=== PATIENT | male | born 1975 | race African-American/Black ===

== ENCOUNTER 2021-05-15 11:09 | Emergency (ER) | payer SELFPAY ==
[~2021-05-15] VITALS: Ht 177.8 cm; Wt 77.2 kg
[2021-05-15] MEDS ORDERED: DEXTROSE 50% 25 GM / 50ML DISP.SYRIN. IV ONE (11:14)
[2021-05-15] MEDS ORDERED: IV NORMAL SALINE 1000ML BAG 1,000 ML IV ONE (11:30)
[2021-05-15 11:45] LABS: BASO # 0.1 x10^3/uL (0.0-0.2); BASO % 1 % (0-3); EOS # 0.3 x10^3/uL (0.0-0.7); EOS % 4 % (0-3); HEMATOCRIT 47.4 % (39.0-53.0); HEMOGLOBIN 15.8 g/dL (13.0-17.5); LYMPH # 1.7 x10^3/uL (1.0-4.8); LYMPH % 20 % (24-48); MEAN CORPUSCULAR HEMOGLOBIN 31 pg (25-35); MEAN CORPUSCULAR HGB CONC 33 g/dL (31-37); MEAN CORPUSCULAR VOLUME 94 fL (79-100); MONO # 1.3 x10^3/uL (0.0-1.1); MONO % 15 % (0-9); NEUT # 5.5 x10^3/uL (1.8-7.7); NEUT % 62 % (31-73); PLATELET COUNT 290 x10^3/uL (140-400); RED BLOOD COUNT 5.06 x10^6/uL (4.30-5.70); RED CELL DISTRIBUTION WIDTH 13.9 % (11.5-14.5); WHITE BLOOD COUNT 8.8 x10^3/uL (4.0-11.0)
--- NOTE | 2021-05-15 11:53 | PHYS DOC ---
Past Medical History Past Surgical History: No Surgical History Adult General Chief Complaint Chief Complaint: HYPOGLYCEMIA HPI HPI The patient is a 45-year-old male with a history of insulin-dependent diabetes and without other medical problems for which she takes daily medications. He takes NPH insulin twice a day and regular insulin multiple times a day based on what sounds like a rough carb counting approach, but tells me that he does not routinely check his blood sugars. Contrary to the triage note, patient does not have a seizure disorder history per discussion with him. Mr. Degroot presents for evaluation of poor responsiveness at home on the couch prior to arrival. Son heard him snoring and went to bedside and could not arouse him. EMS were contacted and upon their arrival patient's blood sugar was noted to be in the 20s. He was administered D10 boluses x2 with some improvement in blood sugar. On arrival to the emergency department patient had aroused and was able to answer questions, follow commands and move all extremities, but remained somewhat lethargic. Blood sugar here initially was in the 40s. 2 A D50 immediately given with considerable improvement in patient's mental status. Following that intervention, level of consciousness normalized. Patient states he does not remember what happened immediately prior to arrival. He states he does not hurt anywhere. He denies feeling poorly when he woke up this morning and specifically denies fevers, nausea or vomiting, headache, focal or lateralizing weakness, numbness or tingling, neck stiffness/pain/meningismus, vision changes, upper respiratory congestion/rhinorrhea, cough, sore throat, shortness of breath or chest pain of any kind, abdominal pain of any kind, flank pain, midline back pain, dysuria, hematuria, polyuria or oliguria, changes in bowel habits, weakness, numbness or tingling to arms or legs. Vital signs are appropriate here and the patient is in no acute distress. Review of Systems Review of Systems A 12 point review of systems was completed and was negative except where noted in HPI above. Current Medications Current Medications Current Medications Medications (Trade) Dose Ordered Sig/Mirtha Start Time Stop Time Status Last Admin Dose Admin Dextrose (Dextrose 50%-Water Syringe) 25 gm STK-MED ONCE 05/15/21 11:14 05/15/21 11:15 DC Sodium Chloride 1,000 ml @ 1,000 mls/hr 1X ONCE 05/15/21 11:30 05/15/21 12:29 DC 05/15/21 11:45 1,000 MLS/HR Allergies Allergies Allergies Coded Allergies Type Severity Reaction Last Updated Verified No Known Drug Allergies 05/15/21 No Physical Exam Physical Exam 45-year-old male appearing nontoxic and in no acute distress. Head is normocephalic and atraumatic. Neck is supple and nontender. Oropharynx is moist. Lungs are clear to auscultation at all stations. There is a normal S1 and S2 without rubs or gallops and capillary refill is appropriate, less than 2 seconds globally. Abdomen is soft, nontender nondistended. Skin is warm and dry without cyanosis, clubbing or edema. Psychiatrically, the patient demonstrates appropriate mood and affect and is alert. Evaluation of the extremities reveals BUEs and BLEs neurovascularly intact distally with strength 5-5, sensation intact light touch in all nerve distributions, radial, DP and PT pulses 2+ bilaterally, capillary refill less than 2 seconds, hands and feet warm and well-perfused. No dependent peripheral edema distally. No calf tenderness or swelling bilaterally. Homans test negative bilaterally. There is chronic ulceration, superficial, to the plantar aspect of the left forefoot, fibular side. Patient states this does not hurt and has been there for a long time. Neurologically, cranial nerves II through XII are intact and the neuro no lateralizing deficit seen. Speech is normal. Language is normal. Coordination is normal. There is no dysmetria with iyeeqd-sj-bitr or vaid-ws-apef bilaterally. Strength is 5-5 at all joints of bilateral upper and lower extremities. Sensation is intact light touch in bilateral upper and lower extremities. Patient ambulates with a narrow, steady, non-ataxic gait here in the emergency department and is alert and oriented x4. Current Patient Data Vital Signs Vital Signs Date Time Temp Pulse Resp B/P (MAP) Pulse Ox O2 Delivery O2 Flow Rate FiO2 05/15/21 11:10 96.6 93 16 179/100 (126) 95 Room Air 96.6 Lab Values Laboratory Tests Test 05/15/21 11:11 05/15/21 11:25 05/15/21 12:15 Glucose (Fingerstick) 49 mg/dL (70-99) L White Blood Count 8.8 x10^3/uL (4.0-11.0) Red Blood Count 5.06 x10^6/uL (4.30-5.70) Hemoglobin 15.8 g/dL (13.0-17.5) Hematocrit 47.4 % (39.0-53.0) Mean Corpuscular Volume 94 fL (79-100) Mean Corpuscular Hemoglobin 31 pg (25-35) Mean Corpuscular Hemoglobin Concent 33 g/dL (31-37) Red Cell Distribution Width 13.9 % (11.5-14.5) Platelet Count 290 x10^3/uL (140-400) Neutrophils (%) (Auto) 62 % (31-73) Lymphocytes (%) (Auto) 20 % (24-48) L Monocytes (%) (Auto) 15 % (0-9) H Eosinophils (%) (Auto) 4 % (0-3) H Basophils (%) (Auto) 1 % (0-3) Neutrophils # (Auto) 5.5 x10^3/uL (1.8-7.7) Lymphocytes # (Auto) 1.7 x10^3/uL (1.0-4.8) Monocytes # (Auto) 1.3 x10^3/uL (0.0-1.1) H Eosinophils # (Auto) 0.3 x10^3/uL (0.0-0.7) Basophils # (Auto) 0.1 x10^3/uL (0.0-0.2) Sodium Level 133 mmol/L (136-145) L Potassium Level 3.9 mmol/L (3.5-5.1) Chloride Level 97 mmol/L (98-107) L Carbon Dioxide Level 25 mmol/L (21-32) Anion Gap 11 (6-14) Blood Urea Nitrogen 13 mg/dL (8-26) Creatinine 0.8 mg/dL (0.7-1.3) Estimated GFR (Cockcroft-Gault) 125.4 BUN/Creatinine Ratio 16 (6-20) Glucose Level 163 mg/dL (70-99) H Calcium Level 8.9 mg/dL (8.5-10.1) Total Bilirubin 0.2 mg/dL (0.2-1.0) Aspartate Amino Transferase (AST) 30 U/L (15-37) Alanine Aminotransferase (ALT) 31 U/L (16-63) Alkaline Phosphatase 86 U/L (46-116) Total Protein 7.9 g/dL (6.4-8.2) Albumin 3.7 g/dL (3.4-5.0) Albumin/Globulin Ratio 0.9 (1.0-1.7) L Laboratory Tests 05/15/21 11:25 Laboratory Tests 05/15/21 12:15 EKG EKG Sinus rhythm, rate 98, no acute ST elevation or depression, CA 154, QRS 92, QTc 469, EP interpretation. Nonischemic tracing, intervals appropriate. [] Radiology/Procedures Radiology/Procedures [] Course & Med Decision Making Course & Med Decision Making History and examination are compatible with symptomatic hypoglycemia in an insulin-dependent diabetic. Symptoms largely resolved after intravenous dextrose. Will check basic labs and feed the patient a meal tray and will observe him for time and will then reevaluate. If he feels well after a meal and has no further symptoms and labs are reassuring, likely home to follow-up closely with primary care. Patient understands and agrees. 1250: Work-up unremarkable and reassuring. Patient has been observed for an extended interval here in the emergency department after eating a meal and feels completely back to normal. He now remembers that he did not eat anything after taking his insulin prior to the episode that brought him in. Will discharge home to follow-up closely with primary care. Patient understands that if he feels worse instead of better, has recurrent symptoms or any other new symptoms of concern that he will need to return to the emergency department immediately for reevaluation. All questions are answered. Dragon Disclaimer Dragon Disclaimer This electronic medical record was generated, in whole or in part, using a voice recognition dictation system. Departure Departure Impression: Primary Impression: Hypoglycemia associated with type 2 diabetes mellitus Disposition: 01 HOME / SELF CARE / HOMELESS Condition: IMPROVED Patient Instructions: Hypoglycemia (Low Blood Sugar) Additional Instructions: Follow-up very closely with your primary care doctor in the office in the next 2 to 4 days for a reevaluation of your symptoms and to discussion of next best steps in care. Remember to eat something as soon as you take your short acting insulin to avoid problems with low blood sugar in the future. Drink plenty of fluids and get plenty of rest. Return to the emergency department with recurrent or worsening symptoms of any kind or with any other new symptoms of concern. SARAH DEL ROSARIO MD May 15, 2021 11:53
[2021-05-15 12:36] LABS: CALCIUM 8.9 mg/dL (8.5-10.1); CREATININE 0.8 mg/dL (0.7-1.3); GFR 125.4; POTASSIUM 3.9 mmol/L (3.5-5.1)
[2021-05-15 12:42] LABS: ALBUMIN 3.7 g/dL (3.4-5.0); ALBUMIN/GLOBULIN RATIO 0.9 (1.0-1.7); TOTAL BILIRUBIN 0.2 mg/dL (0.2-1.0); TOTAL PROTEIN 7.9 g/dL (6.4-8.2)
[2021-05-15 12:53] VITALS: BP 145/66
--- NOTE | 2021-05-16 03:38 | EKG ---
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
--- NOTE | 2021-05-16 03:39 | EKG ---
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
== END 2021-05-15 13:00 | disposition home or self-care (01) ==
LOC: ER 11:09
DX: E11.649 Type 2 diabetes mellitus with hypoglycemia without coma (principal)
CPT/HCPCS: 36415; 80053; 82962; 85025; 93005; 96360; 99285; J7030

== ENCOUNTER 2021-05-30 09:21 | Emergency (ER) | payer SELFPAY ==
[2021-05-30 09:50] LABS: CALCIUM 8.7 mg/dL (8.5-10.1); CREATININE 0.7 mg/dL (0.7-1.3); GFR 146.3; POTASSIUM 5.1 mmol/L (3.5-5.1)
--- NOTE | 2021-05-30 10:32 | PHYS DOC ---
Past Medical History Past Medical History: Diabetes-Type I Past Surgical History: No Surgical History Smoking Status: Current Some Day Smoker Alcohol Use: Occasionally General Adult EDM: Chief Complaint: HYPOGLYCEMIA HPI: HPI: Patient is a 45 year old male with a history of type 1 diabetes who presents with EMS for altered mental status. Patient lives alone and works late at night. Last night took his insulin around midnight. States that he took 10 units of regular insulin, and 14 units of NPH. States that he did eat, but does not think that he ate enough food before going to sleep last night. This morning was found altered by family, and EMS was called. Blood glucose was 51. EMS states that bystanders were concerned that there may have been some shaking/seizure-like activity. Vital signs were stable. IV access was not able to be obtained prehospital, so IM glucagon was given. After the glucagon, EMS states that his mental status was quickly improving. Patient states that he has been in his usual state of health. Denies any acute complaints. Specifically denies any fever, chills, recent congestion, sore throat, runny nose, cough, shortness of breath, chest pain, abdominal pain, nausea/vomiting, or chest pain Review of Systems: Review of Systems: Constitutional: Denies fever or chills. [] Eyes: Denies change in visual acuity. [] HENT: Denies nasal congestion or sore throat. [] Respiratory: Denies cough or shortness of breath. [] Cardiovascular: Denies chest pain or edema. [] GI: Denies abdominal pain, nausea, vomiting, bloody stools or diarrhea. [] : Denies dysuria. [] Musculoskeletal: Denies back pain or joint pain. [] Integument: Denies rash. [] Neurologic: Denies headache, focal weakness or sensory changes. [] Psychiatric: Denies depression or anxiety. [] Heart Score: C/O Chest Pain: No Allergies: Allergies: Allergies Coded Allergies Type Severity Reaction Last Updated Verified No Known Drug Allergies 05/15/21 No Physical Exam: PE: Constitutional: Somnolent, mildly diaphoretic. Neck: Normal range of motion, no tenderness, supple, no stridor. [] Cardiovascular:Heart rate regular rhythm, no murmur [] Lungs & Thorax: Bilateral breath sounds clear to auscultation [] Abdomen: Bowel sounds normal, soft, no tenderness, no masses, no pulsatile mass es. [] Skin: Warm, dry, no erythema, no rash. [] Back: No tenderness, no CVA tenderness. [] Extremities: No tenderness, no cyanosis, no clubbing, ROM intact, no edema. [] Neurologic: Somnolent, eyes closed but opens to voice, oriented to person, place, time, situation. Moving all extremities. Following commands. Normal coordination and strength. Normal sensation grossly. Current Patient Data: Labs: Laboratory Tests Test 05/30/21 09:20 05/30/21 09:25 05/30/21 10:19 Sodium Level 139 mmol/L (136-145) Potassium Level 5.1 mmol/L (3.5-5.1) Chloride Level 104 mmol/L (98-107) Carbon Dioxide Level 24 mmol/L (21-32) Anion Gap 11 (6-14) Blood Urea Nitrogen 10 mg/dL (8-26) Creatinine 0.7 mg/dL (0.7-1.3) Estimated GFR (Cockcroft-Gault) 146.3 Glucose Level 72 mg/dL (70-99) Calcium Level 8.7 mg/dL (8.5-10.1) Magnesium Level 2.0 mg/dL (1.8-2.4) Glucose (Fingerstick) 76 mg/dL (70-99) 234 mg/dL (70-99) H Laboratory Tests 05/30/21 09:20 EKG: EKG: [] Radiology/Procedures: Radiology/Procedures: [] Course & Med Decision Making: Course & Med Decision Making Pertinent Labs and Imaging studies reviewed. (See chart for details) Patient 45-year-old type I diabetic who presents with altered mental status likely due to hypoglycemia. Hypoglycemia appears to be secondary to insulin with inadequate food intake. Insulin dose was 12 AM. IM glucagon given prehospital increased glucose from 51-76. Patient was then given a sandwich and cola. Patient's mental status has been slowly improving and is now at baseline. Basic metabolic panel and magnesium are normal. After food glucose is 234. Patient is requesting discharge as he has to be at work at noon. States that he will be around others, and will have food available for him if he were to have recurrent symptoms. I asked him to discuss his insulin regimen with his primary care doctor, to determine if any adjustments need to be made. Salima Disclaimer: Dragzia Disclaimer: This electronic medical record was generated, in whole or in part, using a voice recognition dictation system. Departure Departure Impression: Primary Impression: Hypoglycemia Disposition: HOME / SELF CARE / HOMELESS Condition: STABLE Referrals: NO PCP (PCP) Additional Instructions: Please call your PCP to discuss your insulin regimen and determine if any changes need to be made. Please continue to check your blood sugar today, and be sure to eat adequate food after you give yourself insulin. Please be sure others are around throughout the day to help in case you have recurrent symptoms. MARY DELCID MD May 30, 2021 10:32
[2021-05-30 11:00] VITALS: BP 129/69
== END 2021-05-30 11:00 | disposition home or self-care (01) ==
LOC: ER 09:21
DX: E10.649 Type 1 diabetes mellitus with hypoglycemia without coma (principal); R41.82 Altered mental status, unspecified; F17.200 Nicotine dependence, unspecified, uncomplicated
CPT/HCPCS: 36415; 80048; 82962; 83735; 99283

== ENCOUNTER 2021-09-17 08:28 | Inpatient (IN) | payer SELFPAY ==
[~2021-09-17] VITALS: Ht 180.3 cm; Wt 78.5 kg
[2021-09-17] MEDS ORDERED: DEXTROSE 50% 25 GM / 50ML DISP.SYRIN. IV ONE (08:45)
--- NOTE | 2021-09-17 08:48 | PHYS DOC ---
Past Medical History Past Medical History: Diabetes-Type I Past Surgical History: No Surgical History Smoking Status: Current Some Day Smoker Alcohol Use: Occasionally General Adult EDM: Chief Complaint: HYPOGLYCEMIA HPI: HPI: Patient is a 46 year old male with a history of insulin-dependent diabetes presents with altered mental status and hypoglycemia. Patient was found by his son with a blood sugar of 48 last seen normal 6:30 PM yesterday. Patient has not seen goal umpire or primary care physician for his diabetes. Patient's mother states that he just buys insulin from the pharmacy and attempt to manage it himself. Patient has had history of hypoglycemia in the past and has been comatose. Review of Systems: Review of Systems: Unable to obtain history due to patient's altered mental status Heart Score: C/O Chest Pain: No Risk Factors: Risk Factors: DM, Current or recent (<one month) smoker, HTN, HLP, family history of CAD, obesity. Risk Scores: Score 0 - 3: 2.5% MACE over next 6 weeks - Discharge Home Score 4 - 6: 20.3% MACE over next 6 weeks - Admit for Clinical Observation Score 7 - 10: 72.7% MACE over next 6 weeks - Early Invasive Strategies Current Medications: Current Medications Medications (Trade) Dose Ordered Sig/Mirtha Start Time Stop Time Status Last Admin Dose Admin Dextrose (Dextrose 50%-Water Syringe) 12.5 gm 1X ONCE 09/17/21 08:45 09/17/21 08:46 DC Allergies: Allergies: Allergies Coded Allergies Type Severity Reaction Last Updated Verified No Known Drug Allergies 05/15/21 No Physical Exam: PE: Constitutional: Patient is confused only able to use profanity. HENT: Normocephalic, atraumatic, bilateral external ears normal, oropharynx moist, no oral exudates, nose normal. [] Eyes: PERRLA, EOMI, conjunctiva normal, no discharge. [] Neck: Normal range of motion, no tenderness, supple, no stridor. [] Cardiovascular:Heart rate regular rhythm, no murmur [] Lungs & Thorax: Bilateral breath sounds clear to auscultation [] Abdomen: Bowel sounds normal, soft, no tenderness, no masses, no pulsatile masses. [] Skin: Patient has an old healing wound on the bottom of his right foot. Patient has Charcot deformity. Warm, dry, no erythema, no rash. [] Back: No tenderness, no CVA tenderness. [] Extremities: No tenderness, no cyanosis, no clubbing, ROM intact, no edema. [] Neurologic: Patient is not alert oriented to person place or time. Patient able to move all 4 extremities. Psychologic: Unable to assess Current Patient Data: Labs: Laboratory Tests Test 09/17/21 08:32 Glucose (Fingerstick) 113 mg/dL (70-99) H EKG: EKG: [] Patient has sinus tachycardia with a heart rate of 101 and a QTC of 468. Patient has anterior Q waves Radiology/Procedures: Radiology/Procedures: []EXAMINATION: CT HEAD/BRAIN WO CLINICAL HISTORY: AMS. TECHNIQUE: Serial axial images without IV contrast were obtained from the vertex to the foramen magnum. CT Dose Reduction Employed: One or more of the following individualized dose reduction techniques were utilized for this examination: 1. Automated exposure control 2. Adjustment of the mA and/or kV according to patient size 3. Use of iterative reconstruction technique. COMPARISON: None FINDINGS: Acute Change: No evidence of an acute infarct or other acute parenchymal process. Hemorrhage: No evidence of acute intracranial hemorrhage. Mass Lesion/Mass Effect: No evidence of intracranial mass or extraaxial fluid collection. No significant mass effect. Chronic Change: Atherosclerotic calcification of the intracranial portion of the bilateral internal carotid arteries. Parenchyma: Parenchyma within normal limits for age. Ventricles: Ventricles within normal limits for age. Paranasal Sinuses and Skull Base: Visualized paranasal sinuses clear. Visualized skull base and soft tissues unremarkable. IMPRESSION: No evidence of acute intracranial abnormality. Course & Med Decision Making: Course & Med Decision Making Patient is not back to his baseline. Patient will be brought in for altered mental status. Dragon Disclaimer: Dragon Disclaimer: This electronic medical record was generated, in whole or in part, using a voice recognition dictation system. Departure Departure Impression: Primary Impression: Hypoglycemia associated with type 2 diabetes mellitus Additional Impression: Altered mental status Condition: STABLE Referrals: NO PCP (PCP) MARCK GARCIA DO Sep 17, 2021 08:48
[2021-09-17 08:52] LABS: BASO % 0 % (0-3); EOS % 0 % (0-3); HEMATOCRIT 45.4 % (39.0-53.0); HEMOGLOBIN 15.4 g/dL (13.0-17.5); LYMPH % 11 % (24-48); MEAN CORPUSCULAR HEMOGLOBIN 32 pg (25-35); MEAN CORPUSCULAR HGB CONC 34 g/dL (31-37); MEAN CORPUSCULAR VOLUME 93 fL (79-100); MONO # 0.5 x10^3/uL (0.0-1.1); MONO % 6 % (0-9); NEUT # 7.8 x10^3/uL (1.8-7.7); NEUT % 83 % (31-73); PLATELET COUNT 315 x10^3/uL (140-400); RED BLOOD COUNT 4.87 x10^6/uL (4.30-5.70); RED CELL DISTRIBUTION WIDTH 14.2 % (11.5-14.5); WHITE BLOOD COUNT 9.5 x10^3/uL (4.0-11.0)
[2021-09-17 09:03] LABS: CALCIUM 9.2 mg/dL (8.5-10.1); CREATININE 0.8 mg/dL (0.7-1.3); GFR 124.8; POTASSIUM 4.3 mmol/L (3.5-5.1)
[2021-09-17 09:09] LABS: ALBUMIN 3.9 g/dL (3.4-5.0); ALBUMIN/GLOBULIN RATIO 0.8 (1.0-1.7); TOTAL BILIRUBIN 0.4 mg/dL (0.2-1.0); TOTAL PROTEIN 8.7 g/dL (6.4-8.2)
[2021-09-17] MEDS ORDERED: IV DEXTROSE 5%-LACT RINGERS 1,000 ML IV SCH (09:30)
--- NOTE | 2021-09-17 10:10 | RAD ---
EXAMINATION: CT HEAD/BRAIN WO CLINICAL HISTORY: AMS. TECHNIQUE: Serial axial images without IV contrast were obtained from the vertex to the foramen magnu m. CT Dose Reduction Employed: One or more of the following individualized dose reduction techniques wer e utilized for this examination: 1. Automated exposure control 2. Adjustment of the mA and/or kV ac cording to patient size 3. Use of iterative reconstruction technique. COMPARISON: None FINDINGS: Acute Change: No evidence of an acute infarct or other acute parenchymal process. Hemorrhage: No evidence of acute intracranial hemorrhage. Mass Lesion/Mass Effect: No evidence of intracranial mass or extraaxial fluid collection. No signific ant mass effect. Chronic Change: Atherosclerotic calcification of the intracranial portion of the bilateral internal c arotid arteries. Parenchyma: Parenchyma within normal limits for age. Ventricles: Ventricles within normal limits for age. Paranasal Sinuses and Skull Base: Visualized paranasal sinuses clear. Visualized skull base and soft tissues unremarkable. IMPRESSION: No evidence of acute intracranial abnormality. Electronically signed by: Vitor Bond DO (09/17/2021 10:08 AM) [id number]
--- NOTE | 2021-09-17 14:37 | HP ---
DATE OF SERVICE: 09/17/2021 ADMIT DATE: 09/17/2021 CHIEF COMPLAINT: Mental status change and hypoglycemia. HISTORY OF PRESENT ILLNESS: The patient is a pleasant middle-aged male who drinks too much alcohol and he is noncompliant with his diabetic meds. He does not see his doctor. He does not go to the support worker. His mom states he drinks lots of beer. His son found him today on the floor unresponsive. His sugar was 48 when the EMS arrived. The patient was brought to the ER for evaluation. We have now given him some glucose. His sugars are up to 118, but is still having mental status change. We are going to admit the patient. PAST MEDICAL HISTORY: Noncompliance, diabetes, tobacco abuse, alcohol abuse per his mom's (she states he drinks lots of beers every day). ALLERGIES: None. FAMILY HISTORY: Hypertension. SOCIAL HISTORY: He drinks and smokes. No drugs that we are aware of. He does not work right now. MEDICATIONS: Reviewed, please refer to the MRAD. REVIEW OF SYSTEMS: Unable to obtain. He is obtunded. PHYSICAL EXAMINATION: VITALS: Within normal limits and are stable. GENERAL: He is obtunded. HEENT: normocephalic atraumatic, external auditory canals are patent. EYES: Extraocular muscles are intact, pupils are equally round and reactive to light and accommodation. MUSCULOSKELETAL: Well developed, well nourished, good range of motion. ENDOCRINE: No thyromegaly was palpated. LYMPHATICS: No cervical chain or axillary nodes were noted. HEMATOPOIETIC: No bruising. NECK: Supple, no JVD, no thyromegaly was noted. LUNGS: Clear to auscultation in all lung monahan without rhonchi or wheezing. HEART: RRR, S1, S2 present. Peripheral pulses intact, no obvious murmurs were noted. ABDOMEN: Soft, nontender. Positive bowel sounds no organomegaly, normal bowel sounds. EXTREMITIES: Without any cyanosis, clubbing, or edema. Pedal pulses intact, Homans sign is negative. NEUROLOGIC: He is obtunded. PSYCHIATRIC: He is obtunded. SKIN: No ulcerations or rashes, good skin turgor, no jaundice. VASCULAR: Good capillary refill, neurovascular bundle appears to be intact. ASSESSMENT AND PLAN: Symptomatic hypoglycemia. The patient has been admitted. We will monitor his glucose carefully and give him p.r.n. amps of D50. Continue his other home medicines. We will consider alcohol withdrawal protocol. If we see signs of alcohol withdrawal, consult Neurology. Deep venous thrombosis prophylaxis. Full code. [facility] [place] DR: AKASH/jennifer TID: [id number]
--- NOTE | 2021-09-17 15:20 | NUR ---
ADMISSION ASSESSMENT COMPLETED, THIS RESISTANCE WELDER UNABLE TO COMPLETE SUJECTIVE PART OF ADMISSION DUE TO PATIENT DROWSY AND CONFUSED AT TIMES.
--- NOTE | 2021-09-17 15:20 | NUR ---
PATIENT ASSESSED FOR ELOPEMENT RISKPER ELOPEMENT POLICY AND PROCEDURE, PATIENT NOT DEEMED A RISK.
[2021-09-17] MEDS ORDERED: INSULIN LISPRO 300 UNITS/3 ML VIAL. SQ SCH (17:00)
[2021-09-17] MEDS ORDERED: IV DEXTROSE 5% 250 ML BAG. IV PRN (17:00)
[2021-09-17] MEDS ORDERED: DEXTROSE 50% 25 GM / 50ML DISP.SYRIN. IV PRN (17:00)
[2021-09-17] MEDS: INSULIN LISPRO 300 UNITS/3 ML VIAL. SQ SCH (17:50)
[2021-09-17 18:12] LABS: BARBITURATES NEG (NEG); BENZODIAZEPINES NEG (NEG); CANNABINOIDS NEG (NEG); COCAINE NEG (NEG); METHADONE NEG (NEG); OPIATES NEG (NEG); PHENCYCLIDINE NEG (NEG)
[2021-09-17 18:13] LABS: AMPHETAMINE/METHAMPHETAMINE NEG (NEG)
[2021-09-17 18:38] LABS: HYALINE CASTS, URINE FEW /HPF
[2021-09-17 18:39] LABS: BACTERIA,URINE 0 /HPF (0-FEW); RBC,URINE OCC /HPF (0-2); WBC,URINE 0 /HPF (0-4)
[2021-09-17 19:00] VITALS: BP 121/51
--- NOTE | 2021-09-17 20:38 | RAD ---
XR CHEST 1V History: Reason: tachycardia / Spl. Instructions: / History: Comparison: None. Findings: No consolidation or pleural effusion. Normal heart size. No pneumothorax. Impression: 1. No acute cardiopulmonary process. Electronically signed by: David Starks DO (09/17/2021 8:36 PM) [facility] [place]
[2021-09-17] MEDS ORDERED: INSULIN GLARGINE SYRINGE. SQ SCH (21:00)
[2021-09-17 23:00] VITALS: BP 123/76
[2021-09-17] MEDS ORDERED: traMADol 50 MG TABLET PO PRN (23:00)
--- NOTE | 2021-09-18 04:27 | EKG ---
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
--- NOTE | 2021-09-18 06:45 | NUR ---
Pt. assessed for elopement risk per elopement policy and procedure, Pt. not deemed a risk.
[2021-09-18 07:00] VITALS: BP 125/74
[2021-09-18] MEDS: INSULIN LISPRO 300 UNITS/3 ML VIAL. SQ SCH ×4 (07:30→12:56)
[2021-09-18 11:00] VITALS: BP 130/55
[2021-09-18 11:40] LABS: HEMATOCRIT 40.3 % (39.0-53.0); HEMOGLOBIN 13.8 g/dL (13.0-17.5); RED BLOOD COUNT 4.36 x10^6/uL (4.30-5.70); RED CELL DISTRIBUTION WIDTH 14.1 % (11.5-14.5); WHITE BLOOD COUNT 10.6 x10^3/uL (4.0-11.0)
[2021-09-18 11:44] LABS: CALCIUM 8.8 mg/dL (8.5-10.1); CREATININE 0.9 mg/dL (0.7-1.3)
--- NOTE | 2021-09-18 12:33 | PDOC ---
[employer] PROGRESS NOTE Date of Service DOS: DATE: 09/18/21 TIME: 12:31 Chief Complaint Chief Complaint Symptomatic hypoglycemia Noncompliance, (he refuses to go the doctor) diabetes, tobacco abuse, alcohol abuse per his mom's (she states he drinks lots of beers every day). History of Present Illness History of Present Illness 09/18/2021 Patient seen exam Discussed with RN Chart reviewed Is much more alert wants to go home We will go ahead and discharge I told him to please stop drinking so much beer Vitals/I&O Vitals/I&O: Vital Signs Date Time Temp Pulse Resp B/P (MAP) Pulse Ox O2 Delivery O2 Flow Rate FiO2 09/18/21 08:00 Room Air 09/18/21 07:00 98.3 81 18 125/74 (91) 97 98.3 I & O 09/17/21 09/17/21 09/18/21 15:00 23:00 07:00 Intake Total 300 ml 120 ml Output Total 120 ml 600 ml Balance 300 ml -120 ml -480 ml Physical Exam General: Alert Heart: Regular rate Lungs: Clear Abdomen: Normal bowel sounds Extremities: Other (Charcot's joint on the right which is chronic for him) Skin: No rashes Labs Labs: Laboratory Tests Test 09/17/21 16:24 09/17/21 17:52 09/17/21 20:38 09/18/21 07:30 Glucose (Fingerstick) 272 mg/dL (70-99) 256 mg/dL (70-99) 125 mg/dL (70-99) Urine Collection Type Unknown Urine Color (Auto) Light yellow Urine Turbidity Clear Urine pH (Auto) 5.5 (<5.0-8.0) Urine Specific [place] 1.014 (1.000-1.030) Urine Protein (Auto) Negative mg/dL (Negative) Urine Glucose (Auto)(UA) >=1000 mg/dL (Negative) Urine Ketones (Auto) 60 mg/dL (Negative) Urine Blood (Auto) Small (Negative) Urine Nitrite Negative (Negative) Urine Bilirubin (Auto) Negative (Negative) Urine Urobilinogen (Auto) Normal mg/dL (Normal) Urine Leukocyte Esterase (Auto) Negative (Negative) Urine RBC Occ /HPF (0-2) Urine WBC 0 /HPF (0-4) Urine Squamous Epithelial Cells Few /LPF Urine Bacteria 0 /HPF (0-FEW) Urine Hyaline Casts Few /HPF Urine Mucus Slight /LPF Urine Opiates Screen Neg (NEG) Urine Methadone Screen Neg (NEG) Urine Barbiturates Neg (NEG) Urine Phencyclidine Screen Neg (NEG) Urine Amphetamine/Methamphetamine Neg (NEG) Urine Benzodiazepines Screen Neg (NEG) Urine Cocaine Screen Neg (NEG) Urine Cannabinoids Screen Neg (NEG) Urine Ethyl Alcohol Neg (NEG) Test 09/18/21 10:55 09/18/21 12:00 White Blood Count 10.6 x10^3/uL (4.0-11.0) Red Blood Count 4.36 x10^6/uL (4.30-5.70) Hemoglobin 13.8 g/dL (13.0-17.5) Hematocrit 40.3 % (39.0-53.0) Mean Corpuscular Volume 92 fL (79-100) Mean Corpuscular Hemoglobin 32 pg (25-35) Mean Corpuscular Hemoglobin Concent 34 g/dL (31-37) Red Cell Distribution Width 14.1 % (11.5-14.5) Platelet Count 293 x10^3/uL (140-400) Sodium Level 132 mmol/L (136-145) Potassium Level 4.0 mmol/L (3.5-5.1) Chloride Level 100 mmol/L (98-107) Carbon Dioxide Level 26 mmol/L (21-32) Anion Gap 6 (6-14) Blood Urea Nitrogen 10 mg/dL (8-26) Creatinine 0.9 mg/dL (0.7-1.3) Estimated GFR (Cockcroft-Gault) 109.0 Glucose Level 255 mg/dL (70-99) Calcium Level 8.8 mg/dL (8.5-10.1) Glucose (Fingerstick) 271 mg/dL (70-99) Assessment and Plan Assessmemt and Plan Problems Medical Problems: (1) Altered mental status Status: Acute (2) Hypoglycemia associated with type 2 diabetes mellitus Status: Acute Symptomatic hypoglycemia Noncompliance, (he refuses to go the doctor) diabetes, tobacco abuse, alcohol abuse per his mom's (she states he drinks lots of beers every day). Plan Discharge Comment Review of Relevant I have reviewed the following items jeremie (where applicable) has been applied. Medications: Current Medications Medications (Trade) Dose Ordered Sig/Mirtha Route PRN Reason Start Time Stop Time Status Last Admin Dose Admin Insulin Human Lispro (HumaLOG) 0-7 UNITS TIDWMEALS SQ 09/17/21 17:00 09/17/21 17:50 Insulin Glargine (Lantus Syringe) 10 unit QHS SQ 09/17/21 21:00 09/17/21 21:08 Insulin Human Lispro (HumaLOG) 4 units TIDAC SQ 09/17/21 17:00 09/17/21 23:00 DC 09/17/21 17:51 Tramadol HCl (Ultram) 50 mg PRN Q6HRS PRN PO MODERATE PAIN 4-6 09/17/21 23:00 09/17/21 23:34 Justifications for Admission Other Justification EDOUARD BYRNE III DO Sep 18, 2021 12:33
[2021-09-18] MEDS ORDERED: INSU100V35 SQ (12:34)
[2021-09-18] MEDS ORDERED: INSU100V8 SQ (12:34)
--- NOTE | 2021-09-18 13:16 | PDOC2 ---
CONSULT Date of Consult Date of Consult Neurology Consultation DATE: 09/18/21 TIME: 13:06 Reason for Consult Reason for Consult: Altered mental status Referring Physician Referring Physician: Dr. Van Camp History of Present Illness Reason for Visit: Adnrew Degroot is a 46-year-old man who was found down on the floor unresponsive. When EMS arrived his blood glucose was 48. He was given D50 and the sugars closely monitored. In the emergency room he still had altered mental status. To the course of the day and night he has gradually improved and appears back to his baseline. He has juvenile onset diabetes. He smokes cigars and he drinks alcohol. 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 He does not complain of any pain. He denies numbness. Past Medical History Endocrine: Diabetes Family History Family History: Hypertension Social History <1 pack per day ALCOHOL: heavy Current Problem List Problem List Problems Medical Problems: (1) Altered mental status Status: Acute (2) Hypoglycemia associated with type 2 diabetes mellitus Status: Acute Current Medications Current Medications Current Medications Dextrose (Dextrose 50%-Water Syringe) 12.5 gm 1X ONCE IV Last administered on 09/17/21at 08:41; Start 09/17/21 at 08:45; Stop 09/17/21 at 08:46; Status DC Dextrose/Lactated Ringer's 1,000 ml @ 40 mls/hr Q24H IV Last administered on 09/17/21at 10:00; Start 09/17/21 at 09:30; Stop 09/17/21 at 16:46; Status DC Insulin Human Lispro (HumaLOG) 0-7 UNITS TIDWMEALS SQ Last administered on 09/17/21at 17:50; Start 09/17/21 at 17:00 Dextrose (Dextrose 50%-Water Syringe) 12.5 gm PRN Q15MIN PRN IV SEE COMMENTS; Start 09/17/21 at 17:00; Status UNV Dextrose (Iv Dextrose 5%) 250 ml PRN Q15MIN PRN IV SEE COMMENTS; Start 09/17/21 at 17:00 Insulin Glargine (Lantus Syringe) 10 unit QHS SQ Last administered on 09/17/21at 21:08; Start 09/17/21 at 21:00 Insulin Human Lispro (HumaLOG) 4 units TIDAC SQ Last administered on 09/17/21at 17:51; Start 09/17/21 at 17:00; Stop 09/17/21 at 23:00; Status DC Tramadol HCl (Ultram) 50 mg PRN Q6HRS PRN PO MODERATE PAIN 4-6 Last admi nistered on 09/17/21at 23:34; Start 09/17/21 at 23:00 Insulin Human Lispro (HumaLOG) 6 units TIDAC SQ ; Start 09/18/21 at 07:30 Active Scripts Active Lantus (Insulin Glargine,Hum.rec.anlog) 100 Unit/1 Ml Vial 10 Unit SQ QHS 30 Days Admelog (Insulin Lispro) 100 Unit/1 Ml Vial 6 Units SQ TIDAC 30 Days Allergies Allergies: Coded Allergies: No Known Drug Allergies (Unverified , 05/15/21) ROS Review of System Constitutional: Negative Eyes: Negative HENT: Negative Respiratory: Negative Cardiovascular: Negative GI: Negative : Negative Musculoskeletal: Charcot joint left foot Neurologic: Peripheral neuropathy Hematologic: Negative Endocrine: Uncontrolled diabetes Lymphatic: Negative Psychiatric: Negative Physical Exam Physical Exam He was alert, awake and cooperative. The speech was fluent and clear. He had a good fund of recent and remote knowledge. Attention and concentration was intact. He was well-groomed and well-nourished. He was fully oriented. Examination of the cranial nerves revealed visual monahan were full to confrontation. Extraocular movements were intact. The eyes were conjugate. Pursuit movements were smooth and saccadic movements were without dysmetria. The pupils were 3 millimeters and reacted to light. There was no afferent pupillary defect. Funduscopic examination did not reveal papilledema, exudate or hemorrhage. Facial sensation was intact. The muscles of mastication and facial expression were powerful symmetrically. Hearing was intact to finger rub. The palate arch symmetrically and the tongue was midline with full range of motion. Sternocleidomastoid and trapezius were powerful bilaterally. Muscle bulk and tone was normal. There was no arm drift or abnormal movement. The power was full and symmetric in the upper and lower extremities but diminished with dorsiflexion. Reflexes were trace in the arms and absent at the knees and ankles. The toes were downgoing bilaterally. Coordination testing with finger to nose, heel to avila, fine motor and rapid alternating movements was well perform ed. The sensory examination was intact to pain, light touch, proprioception, graphesthesia, cold thermal and vibration except for sensory shading in the feet. There was no extinction to double simultaneous stimulation. The gait was not testable. Auscultation of the carotid arteries did not reveal a bruit. Heart rhythm was regular without a murmur. Peripheral pulses are 2/4 at the wrists and feet. There was no edema or cyanosis of the extremities. He had a very enlarged joint of his right hand medial aspect and very deformed and enlarged left ankle with a large callused looking lesion on the bottom of his foot. Vitals VITALS Vital Signs Date Time Temp Pulse Resp B/P (MAP) Pulse Ox O2 Delivery O2 Flow Rate FiO2 09/18/21 08:00 Room Air 09/18/21 07:00 98.3 81 18 125/74 (91) 97 98.3 Labs Labs Laboratory Tests Test 09/17/21 08:32 09/17/21 08:35 09/17/21 08:59 09/17/21 16:24 Glucose (Fingerstick) 113 mg/dL (70-99) 181 mg/dL (70-99) 272 mg/dL (70-99) White Blood Count 9.5 x10^3/uL (4.0-11.0) Red Blood Count 4.87 x10^6/uL (4.30-5.70) Hemoglobin 15.4 g/dL (13.0-17.5) Hematocrit 45.4 % (39.0-53.0) Mean Corpuscular Volume 93 fL (79-100) Mean Corpuscular Hemoglobin 32 pg (25-35) Mean Corpuscular Hemoglobin Concent 34 g/dL (31-37) Red Cell Distribution Width 14.2 % (11.5-14.5) Platelet Count 315 x10^3/uL (140-400) Neutrophils (%) (Auto) 83 % (31-73) Lymphocytes (%) (Auto) 11 % (24-48) Monocytes (%) (Auto) 6 % (0-9) Eosinophils (%) (Auto) 0 % (0-3) Basophils (%) (Auto) 0 % (0-3) Neutrophils # (Auto) 7.8 x10^3/uL (1.8-7.7) Lymphocytes # (Auto) 1.0 x10^3/uL (1.0-4.8) Monocytes # (Auto) 0.5 x10^3/uL (0.0-1.1) Eosinophils # (Auto) 0.0 x10^3/uL (0.0-0.7) Basophils # (Auto) 0.0 x10^3/uL (0.0-0.2) Sodium Level 135 mmol/L (136-145) Potassium Level 4.3 mmol/L (3.5-5.1) Chloride Level 99 mmol/L (98-107) Carbon Dioxide Level 24 mmol/L (21-32) Anion Gap 12 (6-14) Blood Urea Nitrogen 12 mg/dL (8-26) Creatinine 0.8 mg/dL (0.7-1.3) Estimated GFR (Cockcroft-Gault) 124.8 BUN/Creatinine Ratio 15 (6-20) Glucose Level 98 mg/dL (70-99) Calcium Level 9.2 mg/dL (8.5-10.1) Total Bilirubin 0.4 mg/dL (0.2-1.0) Aspartate Amino Transf (AST/SGOT) 39 U/L (15-37) Alanine Aminotransferase (ALT/SGPT) 45 U/L (16-63) Alkaline Phosphatase 69 U/L (46-116) Total Protein 8.7 g/dL (6.4-8.2) Albumin 3.9 g/dL (3.4-5.0) Albumin/Globulin Ratio 0.8 (1.0-1.7) Test 09/17/21 17:52 09/17/21 20:38 09/18/21 07:30 09/18/21 10:55 Urine Collection Type Unknown Urine Color (Auto) Light yellow Urine Turbidity Clear Urine pH (Auto) 5.5 (<5.0-8.0) Urine Specific [place] 1.014 (1.000-1.030) Urine Protein (Auto) Negative mg/dL (Negative) Urine Glucose (Auto)(UA) >=1000 mg/dL (Negative) Urine Ketones (Auto) 60 mg/dL (Negative) Urine Blood (Auto) Small (Negative) Urine Nitrite Negative (Negative) Urine Bilirubin (Auto) Negative (Negative) Urine Urobilinogen (Auto) Normal mg/dL (Normal) Urine Leukocyte Esterase (Auto) Negative (Negative) Urine RBC Occ /HPF (0-2) Urine WBC 0 /HPF (0-4) Urine Squamous Epithelial Cells Few /LPF Urine Bacteria 0 /HPF (0-FEW) Urine Hyaline Casts Few /HPF Urine Mucus Slight /LPF Urine Opiates Screen Neg (NEG) Urine Methadone Screen Neg (NEG) Urine Barbiturates Neg (NEG) Urine Phencyclidine Screen Neg (NEG) Urine Amphetamine/Methamphetamine Neg (NEG) Urine Benzodiazepines Screen Neg (NEG) Urine Cocaine Screen Neg (NEG) Urine Cannabinoids Screen Neg (NEG) Urine Ethyl Alcohol Neg (NEG) Glucose (Fingerstick) 256 mg/dL (70-99) 125 mg/dL (70-99) White Blood Count 10.6 x10^3/uL (4.0-11.0) Red Blood Count 4.36 x10^6/uL (4.30-5.70) Hemoglobin 13.8 g/dL (13.0-17.5) Hematocrit 40.3 % (39.0-53.0) Mean Corpuscular Volume 92 fL (79-100) Mean Corpuscular Hemoglobin 32 pg (25-35) Mean Corpuscular Hemoglobin Concent 34 g/dL (31-37) Red Cell Distribution Width 14.1 % (11.5-14.5) Platelet Count 293 x10^3/uL (140-400) Sodium Level 132 mmol/L (136-145) Potassium Level 4.0 mmol/L (3.5-5.1) Chloride Level 100 mmol/L (98-107) Carbon Dioxide Level 26 mmol/L (21-32) Anion Gap 6 (6-14) Blood Urea Nitrogen 10 mg/dL (8-26) Creatinine 0.9 mg/dL (0.7-1.3) Estimated GFR (Cockcroft-Gault) 109.0 Glucose Level 255 mg/dL (70-99) Calcium Level 8.8 mg/dL (8.5-10.1) Test 09/18/21 12:00 Glucose (Fingerstick) 271 mg/dL (70-99) Laboratory Tests Test 09/17/21 16:24 09/17/21 17:52 09/17/21 20:38 09/18/21 07:30 Glucose (Fingerstick) 272 mg/dL (70-99) 256 mg/dL (70-99) 125 mg/dL (70-99) Urine Collection Type Unknown Urine Color (Auto) Light yellow Urine Turbidity Clear Urine pH (Auto) 5.5 (<5.0-8.0) Urine Specific [place] 1.014 (1.000-1.030) Urine Protein (Auto) Negative mg/dL (Negative) Urine Glucose (Auto)(UA) >=1000 mg/dL (Negative) Urine Ketones (Auto) 60 mg/dL (Negative) Urine Blood (Auto) Small (Negative) Urine Nitrite Negative (Negative) Urine Bilirubin (Auto) Negative (Negative) Urine Urobilinogen (Auto) Normal mg/dL (Normal) Urine Leukocyte Esterase (Auto) Negative (Negative) Urine RBC Occ /HPF (0-2) Urine WBC 0 /HPF (0-4) Urine Squamous Epithelial Cells Few /LPF Urine Bacteria 0 /HPF (0-FEW) Urine Hyaline Casts Few /HPF Urine Mucus Slight /LPF Urine Opiates Screen Neg (NEG) Urine Methadone Screen Neg (NEG) Urine Barbiturates Neg (NEG) Urine Phencyclidine Screen Neg (NEG) Urine Amphetamine/Methamphetamine Neg (NEG) Urine Benzodiazepines Screen Neg (NEG) Urine Cocaine Screen Neg (NEG) Urine Cannabinoids Screen Neg (NEG) Urine Ethyl Alcohol Neg (NEG) Test 09/18/21 10:55 09/18/21 12:00 White Blood Count 10.6 x10^3/uL (4.0-11.0) Red Blood Count 4.36 x10^6/uL (4.30-5.70) Hemoglobin 13.8 g/dL (13.0-17.5) Hematocrit 40.3 % (39.0-53.0) Mean Corpuscular Volume 92 fL (79-100) Mean Corpuscular Hemoglobin 32 pg (25-35) Mean Corpuscular Hemoglobin Concent 34 g/dL (31-37) Red Cell Distribution Width 14.1 % (11.5-14.5) Platelet Count 293 x10^3/uL (140-400) Sodium Level 132 mmol/L (136-145) Potassium Level 4.0 mmol/L (3.5-5.1) Chloride Level 100 mmol/L (98-107) Carbon Dioxide Level 26 mmol/L (21-32) Anion Gap 6 (6-14) Blood Urea Nitrogen 10 mg/dL (8-26) Creatinine 0.9 mg/dL (0.7-1.3) Estimated GFR (Cockcroft-Gault) 109.0 Glucose Level 255 mg/dL (70-99) Calcium Level 8.8 mg/dL (8.5-10.1) Glucose (Fingerstick) 271 mg/dL (70-99) Images Images CT head without contrast September 17, 2021 FINDINGS: Acute Change: No evidence of an acute infarct or other acute parenchymal process. Hemorrhage: No evidence of acute intracranial hemorrhage. Mass Lesion/Mass Effect: No evidence of intracranial mass or extraaxial fluid collection. No significant mass effect. Chronic Change: Atherosclerotic calcification of the intracranial portion of the bilateral internal carotid arteries. Parenchyma: Parenchyma within normal limits for age. Ventricles: Ventricles within normal limits for age. Paranasal Sinuses and Skull Base: Visualized paranasal sinuses clear. Visualized skull base and soft tissues unremarkable. IMPRESSION: No evidence of acute intracranial abnormality. Chest x-ray September 17, 2021 XR CHEST 1V History: Reason: tachycardia / Spl. Instructions: / History: Comparison: None. Findings: No consolidation or pleural effusion. Normal heart size. No pneumothorax. Impression: 1. No acute cardiopulmonary process. Assessment/Plan Assessment/Plan Patient is a 46-year-old man with juvenile onset diabetes who appears to be noncompliant with his regimen. He had an episode of hypoglycemia and was found unresponsive on the ground. The sugars have been monitored and restored and he now appears back to his baseline. I did not see any neurologic evidence to suggest acute stroke. He has evidence of a significant peripheral neuropathy with a Charcot joint of his left foot. He has a very enlarged callus-like lesion which could be an underlying infection potentially. I will leave investigation of this lesion to his primary care provider. He may be dismissed from a neurologic perspective when medically stable. ISAÍAS CASE MD Sep 18, 2021 13:16
--- NOTE | 2021-09-18 15:09 | NUR ---
Discharge Note: EDWARD BARNETT Discharge instructions and discharge home medications reviewed with Patient and a copy given. All questions have been answered and understanding verbalized. The following instructions and handouts were given: follow up instructions, medication education Discontinued lines and drains: 20 guage left FA, tip intact. Patient tolerated well. Patient discharged to home with self care via family.
[2021-09-19 02:07] LABS: HEMOGLOBIN A1C 8.2 % (4.8-5.6)
--- NOTE | 2021-09-19 03:19 | DS ---
DATE OF DISCHARGE: 09/18/2021 ADMISSION DIAGNOSES: Hypoglycemia and alcohol abuse. DISCHARGE DIAGNOSES: Resolving hypoglycemia, chronic alcohol abuse, noncompliance, diabetes, tobacco abuse. HOSPITAL COURSE: The patient is a pleasant middle-aged male who presented with mental status change, was found down by his son and was noted to have a glucose of 48. We gave him glucose and alcohol withdrawal protocol. Today, I saw and examined him. He is up, alert, wanted to go home. We discharged to home. DISPOSITION: Home. ACTIVITY: As tolerated. DIET: Low sodium. DISCHARGE MEDICATIONS: Please see the MRAD. He is on insulin 10 units of Lantus at bedtime and Lovenox 60 mg t.i.d. TOTAL TIME: 32 minutes. AKASH/ZAHRAA/ANDREA DR: Janet TID: [id number]
== END 2021-09-18 14:50 | disposition home or self-care (01) | DRG 639 ==
LOC: ER 08:28 → ED HOLD 11:12 → 5 NORTH 14:32
PROVIDERS: ADMIT Internal Medicine; ATTEND Internal Medicine
DX: E11.649 Type 2 diabetes mellitus with hypoglycemia without coma (principal); F10.10 Alcohol abuse, uncomplicated; F17.290 Nicotine dependence, other tobacco product, uncomplicated; Z79.4 Long term (current) use of insulin; Z82.49 Family history of ischemic heart disease and other diseases of the circulatory system; Z91.14 Patient's other noncompliance with medication regimen; Z91.19 Patient's noncompliance with other medical treatment and regimen; E11.610 Type 2 diabetes mellitus with diabetic neuropathic arthropathy; E11.42 Type 2 diabetes mellitus with diabetic polyneuropathy
CPT/HCPCS: 36415; 70450; 71045; 80048; 80053; 80307; 81001; 82962; 83036; 85025; 85027; 93005; 96365; 96366; 96376; J1815; J7121; 99285-25; G0378